=== PATIENT | female | born 1980 | race Caucasian/White ===

== ENCOUNTER 2016-10-07 23:02 | Emergency (ER) | payer OTHER ==
[~2016-10-07] VITALS: Ht 154.9 cm; Wt 87.5 kg
[~2016-10-07 23:02] MED LIST: BACTDS PO; IBUP-1542 PO; RIFA300C53 PO
[2016-10-07 23:10] VITALS: Ht 154.9 cm; Wt 87.5 kg
[2016-10-07] MEDS ORDERED: OSLT75C PO (23:50)
[2016-10-07] MEDS ORDERED: IBUP800T25 PO (23:50)
[2016-10-07] MEDS ORDERED: ACET325T33 PO (23:50)
[2016-10-08] MEDS ORDERED: IBUPROFEN 800 MG TAB PO ONE
[2016-10-08 00:30] VITALS: TEMP 98.8
--- NOTE | 2016-10-08 06:36 | ERD ---
DATE OF SERVICE: HISTORY OF PRESENT ILLNESS: The patient is a 35-year-old female complaining of fever, bodyaches, dr y cough, sore throat, red eyes for one day. Patient has diffuse malaise and fatigue and mother kristofer montes she may have the flu. PAST MEDICAL HISTORY: Denies any other medical problems. ALLERGIES: Denies all to medications. PAST SURGICAL HISTORY: Ortho surgery on her knee. SOCIAL HISTORY: Denies. IMMUNIZATIONS: Up to date on vaccinations. REVIEW OF SYSTEMS: A 12-point review of systems was done. Refer to HPI for positives, all other sy stems negative. PHYSICAL EXAMINATION VITAL SIGNS: Temperature is 100.3, pulse 98, blood pressure is 119/67, respiratory rate 18, O2 at 9 8% on room air. Pain intensity of 4/10. GENERAL: The patient is well appearing, well nourished, no acute distress. CARDIAC: Regular rate and rhythm. No murmurs, clicks, rubs or gallops. No S3 or S4. LUNGS: Clear to auscultation bilaterally. There are no rales, wheezes or rhonchi. HEENT: Atraumatic. Conjunctivae are pink. Pupils equal, round, and reactive to light. There is no s cleral icterus. Tympanic membranes clear bilaterally. Oropharynx clear. No nystagmus or photophobia . ABDOMEN: Soft, nontender, nondistended. Positive bowel sounds. No rebound. No guarding. SKIN: There is no apparent rash or petechia. The skin is warm and dry. DIAGNOSES: 1. Fever. 2. Flu-like symptoms. MEDICAL DECISION MAKING: I have low suspicion for pneumonia, low suspicion for bacterial HEENT infe ction, low suspicion for acute abdominal etiology or meningitis or sepsis. Patient's exam is concer mary lou for influenza. DISCHARGE: The patient is discharged stable. Patient is given a prescription for Tamiflu, Tylenol and ibuprofen and told to follow up with primary care within 1 to 2 days for reevaluation. Patient was told if symptoms progress or worsen to return to the ER. All other questions answered at time o f discharge. Discharge summary given at the time of departure. Patient understood and complied wit h plan. Dictated By: DILEEP HAMMONDS for IRVIN VILLEGAS/NTS Conf#: [id number] [facility]#: [id number]
== END 2016-10-08 00:19 | disposition home or self-care (01) ==
LOC: FTE 23:02
DX: R50.9 Fever, unspecified (principal); R05 Cough; J02.9 Acute pharyngitis, unspecified; H57.8 Other specified disorders of eye and adnexa
CPT/HCPCS: Z7502; Z7610; 99283

== ENCOUNTER 2016-10-13 22:33 | Emergency (ER) | payer OTHER ==
[~2016-10-13] VITALS: Ht 157.5 cm; Wt 85.3 kg
[~2016-10-13 22:33] MED LIST changes: +ACET325T33 PO; +IBUP800T25 PO; +OSLT75C PO
[2016-10-13 22:39] VITALS: Ht 157.5 cm; Wt 85.3 kg
--- NOTE | 2016-10-14 03:07 | RADRPT ---
PROCEDURE: XR Chest. CLINICAL INDICATION: Cough. TECHNIQUE: Single frontal chest x-ray. COMPARISON: None. FINDINGS: The cardiomediastinal silhouette is unremarkable. Hypoventilation with minimal bibasilar atelectasi s.. There is mild hilar peribronchial thickening with mild diffuse interstitial prominence. There i s no focal infiltrate... There is no pleural effusion. There is no pneumothorax. The osseous stru ctures are unremarkable. IMPRESSION: Hypoventilation minimal bibasilar atelectasis. Mild hilar peribronchial thickening with interstitial prominence suggestive of a bronchitis / pneumonitis. RPTAT: [facility] .Leonardo Hyatt MD, MD Date Time Electronically viewed and signed by .Leonardo Hyatt MD, on 10/14/2016 03:07 .K/
[2016-10-14] MEDS ORDERED: ALBUTEROL 0.5% (NEB) 2.5 MG/0.5 ML AMP INH STA (03:13)
[2016-10-14] MEDS ORDERED: AZITHROMYCIN 250 MG TAB PO STA (03:13)
[2016-10-14] MEDS ORDERED: METHYLPREDNISOLONE 125 MG INJ IV STA (03:13)
[2016-10-14] MEDS ORDERED: SOD CHLORIDE 0.9% 1,000 ML IV STA (03:14)
--- NOTE | 2016-10-14 04:25 | ERD ---
ER Documentation Chief Complaint Date/Time DATE: 10/14/16 TIME: 04:21 Chief Complaint cough/fever x 1 day HPI This is a 35-year-old female brought in by mother presenting to the emergency room complaining of fever, cough and sore throat for 1 week. Patient was seen here on October 07 one week ago and was diagnosed with the flu and given Tamiflu. Patient's mother stated that she has been taking Tamiflu and ibuprofen and Tylenol last dose was at 10 PM. Patient's mother states that she continues to have fever and her cough has worsened. Patient denies any chest pain. She admits to having shortness of breath. ROS All systems reviewed and are negative except as per history of present illness. Medications Home Meds Active Scripts Azithromycin* (Zithromax*) 250 Mg Tablet, 250 MG PO DAILY for 4 Days, TAB Prov:MARIZA GONZALEZ PA-C 10/14/16 Promethazine HCl/Codeine (Prometh-Codein 6.25-10 mg/5 ml) 5 Ml Syrup, 5 ML PO Q4 Y for COUGH, #90 Prov:MARIZA GONZALEZ PA-C 10/14/16 Albuterol Sulfate* (Proair HFA*) 8.5 Gm Hfa.aer.ad, 2 PUFF INH Q4, #1 INHALER Prov:MARIZA GONZALEZ PA-C 10/14/16 Prednisone* (Prednisone*) 20 Mg Tab, 40 MG PO DAILY for 4 Days, TAB Prov:MARIZA GONZALEZ PA-C 10/14/16 Acetaminophen* (Tylenol*) 325 Mg Tablet, 2 TAB PO Q8 Y for PAIN AND OR ELEVATED TEMP, #20 TAB Prov:JENNYFER PATEL PA-C 10/07/16 Ibuprofen* (Motrin*) 800 Mg Tab, 800 MG PO Q6, #30 TAB Prov:JENNYFER PATEL PA-C 10/07/16 Oseltamivir Phosphate* (Tamiflu*) 75 Mg Capsule, 75 MG PO BID for 5 Days, CAP Prov:JENNYFER PATEL PA-C 10/07/16 Ibuprofen* (Motrin*) 600 Mg Tab, 600 MG PO Q6, #20 TAB Prov:GEO SANTOS PA-C 07/05/16 Rifampin* (Rifampin*) 300 Mg Cap, 300 MG PO BID for 3 Days, CAP Prov:JO-ANN SALMERON NP 07/18/15 Ibuprofen* (Motrin*) 600 Mg Tab, 600 MG PO Q6H Y for PAIN AND OR ELEVATED TEMP, #30 Prov:JO-ANN SALMERON NP 07/18/15 Sulfamethoxazole-Trimethoprim* (Bactrim* DS) 800-160 Mg Tab, 1 TAB PO BID for 10 Days, TAB Prov:JO-ANN SALMERON NP 07/18/15 Reported Medications [none] Unknown Strength No Conflict Check 07/18/15 Allergies Allergies: Coded Allergies: No Known Allergy (Unverified , 10/13/16) PMhx/Soc History of Surgery: Yes (left knee surgery) Anesthesia Reaction: No Hx Neurological Disorder: Yes (special needs) Hx Respiratory Disorders: No Hx Cardiac Disorders: No Hx Psychiatric Problems: Yes (developmentally delayed) Hx Miscellaneous Medical Probl: Yes (SEP 2016 DX OF FLU.) Hx Alcohol Use: No Hx Substance Use: No Hx Tobacco Use: No Smoking Status: Never smoker Physical Exam Vitals Vital Signs Date Time Temp Pulse Resp B/P Pulse Ox O2 Delivery O2 Flow Rate FiO2 10/14/16 04:17 95 22 95 21 10/13/16 22:39 98.4 85 20 126/71 94 Physical Exam GENERAL: well-developed/well-nourished, in no apparent distress, non-toxic appearing HEAD: NC/AT, no swelling noted in frontal or maxillary areas EARS: bilateral tympanic membrane is intact without erythema or effusion NARES: congested THROAT: oropharynx erythematous without exudates, no tonsil enlargement, post nasal drip EYES: Conjunctiva normal NECK: Supple, no lymphadenopathy PULM: CTA bilaterally, no rales, rhonchi, or wheezing heard CV: Normal S1S2, RRR, good capillary refill GI: Soft, non-distended, normal bowel sounds, non-tender BACK: No midline tenderness, no masses EXT No clubbing, cyanosis, or edema NEURO: Alert and Orientated SKIN: Intact, normal turgor PSYCH: Normal mood and mentation Results 24 hrs Current Medications Medications (Trade) Dose Ordered Sig/Kayode Route PRN Reason Start Time Stop Time Status Last Admin Dose Admin Albuterol (Proventil 0.5% (Neb)) 5 mg ONCE STAT INH 10/14/16 03:13 10/14/16 03:15 DC 10/14/16 04:16 Methylprednisolone Sodium Succinate (Solu-Medrol) 125 mg ONCE STAT IV 10/14/16 03:13 10/14/16 03:15 DC 10/14/16 04:21 Azithromycin 500 mg 500 mg ONCE STAT PO 10/14/16 03:13 10/14/16 03:15 DC 10/14/16 04:44 Sodium Chloride (NS) 1,000 ml @ 1,000 mls/hr Q1H STAT IV 10/14/16 03:14 10/14/16 04:13 DC 10/14/16 04:21 Procedures/MDM This is a 35-year-old female presenting to the emergency room for fever and worsening cough for 1 week. Patient was seen here 1 week ago on October 07 and was given Tamiflu, ibuprofen and Tylenol. Patient has finished the Tamiflu. She continues to have a worsening cough and shortness of breath. On examination there was no evidence of rales. Patient had O2 sat of 93%. Chest x -ray was done and radiologist stated: Hypoventilation minimal bibasilar atelectasis. Mild hilar peribronchial thickening with interstitial prominence suggestive of a bronchitis / pneumonitis. IV access is established, patient was given 125 mg of Solu-Medrol. She was given 1 L fluids. RT was consulted and patient was given 5 mg continuous albuterol treatment. Patient was observed and I reassessed her, she was doing a lot better. Patient's pulse ox is 98%, she is breathing well on room air. Patient has stable vital signs for discharge. Discussed to return to the emergency department for any worsening signs or symptoms. Patient understood and agreed plan Departure Diagnosis: Primary Impression: Bronchitis Condition: Stable MARIZA GONZALEZ PA-C Oct 14, 2016 04:25
[2016-10-14] MEDS ORDERED: PRED20TA PO (04:31)
[2016-10-14] MEDS ORDERED: ALBU8.5H3 INH (04:32)
[2016-10-14] MEDS ORDERED: PROM5SYR2 PO (04:32)
[2016-10-14] MEDS ORDERED: AZIT250T94 PO (04:33)
[2016-10-14 05:14] VITALS: BP 139/85; PULSE 102; RESP 22; TEMP 99.4
== END 2016-10-14 05:32 | disposition home or self-care (01) ==
LOC: FTE 22:33
DX: J20.9 Acute bronchitis, unspecified (principal)
CPT/HCPCS: 71010; 94644; 96361; 96374; J2930; J7030; Z7502; Z7610

== ENCOUNTER 2017-10-15 02:11 | Emergency (ER) | END 2017-10-15 07:20 | disposition home or self-care (01) ==